=== PATIENT | female | born 1930 | race Caucasian/White ===

== ENCOUNTER → 2017-01-05 | Outpatient (CLI) | payer MEDICARE ==
--- NOTE | 2017-01-05 08:41 | RAD ---
DATE: 01/05/2017 EXAM: DIGITAL SCREEN BILAT W/CAD HISTORY: Screening study. COMPARISON: 11/12/2015 This study was interpreted with the benefit of Computerized Aided Detection (CAD). The breast parenchyma shows scattered fibroglandular densities. Breast parenchyma level B. FINDINGS: Digital MLO and CC mammograms of both breasts were obtained. Comparison study is dated 11/12/2015. The breast parenchyma is composed of scattered fibroglandular densities which can obscure a lesion on mammography. Scattered vascular calcifications are seen within both breasts. No spiculated mass is seen. No malignant appearing calcification or area of architectural distortion is noted. Since the previous examination there has been no significant interval change. IMPRESSION: BI-RADS Category 1, negative. There is no mammographic evidence of malignancy. Routine yearly screening mammography is recommended for follow-up. BI-RADS CATEGORY: 1 NEGATIVE RECOMMENDED FOLLOW-UP: 12M 12 MONTH FOLLOW-UP PQRS compliance statement: Patient information was entered into a reminder system with a target due date 01/05/2018 for the next mammogram. Mammography is a sensitive method for finding small breast cancers, but it does not detect them all and is not a substitute for careful clinical examination. A negative mammogram does not negate a clinically suspicious finding and should not result in delay in biopsying a clinically suspicious abnormality. "Our facility is accredited by the [employer] Mammography [employer]."
== END | disposition home or self-care (01) ==
LOC: MAMMO 07:40
PROVIDERS: ATTEND Family Medicine
DX: Z12.31 Encounter for screening mammogram for malignant neoplasm of breast (principal)
CPT/HCPCS: G0202; 77067

== ENCOUNTER → 2018-01-09 | Outpatient (CLI) | payer MEDICARE ==
--- NOTE | 2018-01-09 12:29 | RAD ---
DATE: 01/09/2018 EXAM: MAMMO MIKY SCREENING BILATERAL HISTORY: Routine screening COMPARISON: 01/05/2017 This study was interpreted with the benefit of Computerized Aided Detection (CAD). Breast Density: SCATTERED The breast parenchyma shows scattered fibroglandular densities. Breast parenchyma level B. FINDINGS: 2-D and 3-D tomosynthesis imaging was performed in CC and MLO projections. The cc view of the right breast demonstrates a tiny posterior opacity near the midline which was not evident on previous studies. This is best seen on CC miky image #32. A definite correlate is not seen in the oblique projection. No other new or enlarging breast densities are seen. Benign type calcifications are present. No suspicious microcalcifications are evident. IMPRESSION: Possible developing right breast density. Spot compression cc and straight medial lateral views are suggested for further evaluation. If a suspicious density persists, right breast ultrasound within the indicated. BI-RADS CATEGORY: 0 INCOMPLETE: NEEDS ADDITIONAL IMAGING EVALUATION AND/OR PRIOR MAMMOGRAMS FOR COMPARISON. RECOMMENDED FOLLOW-UP: ADD ADDITIONAL IMAGING PQRS compliance statement: Patient information was entered into a reminder system with a target due date for the next mammogram. Mammography is a sensitive method for finding small breast cancers, but it does not detect them all and is not a substitute for careful clinical examination. A negative mammogram does not negate a clinically suspicious finding and should not result in delay in biopsying a clinically suspicious abnormality. "Our facility is accredited by the [employer] Mammography Program."
== END | disposition home or self-care (01) ==
LOC: MAMMO 16:17
PROVIDERS: ATTEND Family Medicine
DX: Z12.31 Encounter for screening mammogram for malignant neoplasm of breast (principal)
CPT/HCPCS: 77063; 77067

== ENCOUNTER → 2018-01-18 | Outpatient (CLI) | payer MEDICARE ==
--- NOTE | 2018-01-18 13:59 | RAD ---
DATE: 01/18/2018 EXAM: DIGITAL DIAGNOSTIC RT HISTORY: Suspicious screening study COMPARISON: 01/09/2018, 01/05/2017, 10/13/2015 This study was interpreted with the benefit of Computerized Aided Detection (CAD). Breast Density: SCATTERED The breast parenchyma shows scattered fibroglandular densities. Breast parenchyma level B. FINDINGS: A spot compression cc view of the central aspect of the right breast was obtained. The small density seen on the screening study in this region is no longer evident. There are now normal appearing fibroglandular shadows similar to those seen on previous studies. The appearance on the screening exam was apparently a summation shadow. No abnormality is seen on the current straight mediolateral view. IMPRESSION: There is no mammographic evidence of malignancy in the right breast. Routine yearly follow-up is suggested. BI-RADS CATEGORY: 2 BENIGN FINDING(S) RECOMMENDED FOLLOW-UP: 12M 12 MONTH FOLLOW-UP PQRS compliance statement: Patient information was entered into a reminder system with a target due date for the next mammogram. Mammography is a sensitive method for finding small breast cancers, but it does not detect them all and is not a substitute for careful clinical examination. A negative mammogram does not negate a clinically suspicious finding and should not result in delay in biopsying a clinically suspicious abnormality. "Our facility is accredited by the [employer] Mammography Program."
== END | disposition home or self-care (01) ==
LOC: MAMMO 12:53
PROVIDERS: ATTEND Family Medicine
DX: R92.8 Other abnormal and inconclusive findings on diagnostic imaging of breast (principal)
CPT/HCPCS: 77065

== ENCOUNTER → 2018-02-18 | Outpatient (CLI) | payer MEDICARE ==
--- NOTE | 2018-02-18 12:55 | KCIC ---
EXAM: Dual energy x-ray absorptiometry (DEXA). HISTORY: Postmenopausal female presents for osteoporosis screening. COMPARISON: 04/27/2015. TECHNIQUE: Dual energy x-ray absorptiometry of the lumbar spine and left was performed. Calculation of bone mineral density based on standard deviations above or below the expected young adult normal value (T-score) was completed. FINDINGS: The average bone mineral density in the 1st through 4th lumbar vertebrae is 0.865 g/cmxcm, corresponding with a T-score of -1.7. There has been a 17.1% increase in density of the lumbar spine compared to the prior study. The average total bone mineral density in the left hip is 0.937 g/cmxcm, corresponding with a T-score of -0.0. There has been a 3.3% decrease in density of the left hip compared to the prior study. IMPRESSION: 1. Osteopenia measured at the lumbar spine. 2. Normal bone mineral density measured at the left hip. Note: Definitions established by the World Health Organization: 1. Normal: T-score is -1.0 or above. 2. Osteopenia: T-score is between -1.0 and -2.5 . 3. Osteoporosis: T-score is -2.5 or below. Electronically signed by: Paola Lindsey MD (02/18/2018 12:52 PM) [place] [id number]
== END | disposition home or self-care (01) ==
LOC: KCIC DEXA 09:27
PROVIDERS: ATTEND Family Medicine
DX: Z13.820 Encounter for screening for osteoporosis (principal); M85.88 Other specified disorders of bone density and structure, other site
CPT/HCPCS: 77080

== ENCOUNTER → 2018-10-30 | Outpatient (CLI) | payer MEDICARE ==
--- NOTE | 2018-10-30 16:38 | KCIC ---
Examination: Ultrasound abdomen complete HISTORY: History of bloating, cholecystectomy COMPARISON: None available. FINDINGS: The aorta, pancreas, IVC are not well-visualized due to bowel gas. The spleen is not well-visualized due to bowel gas. The visualized spleen measures 8 cm. The liver measures 16 cm in length. The common bile duct measures 4.2 mm in transverse dimension. Cholecystectomy changes identified. The right kidney measures 9.8 cm in length. Left kidney 10.6 cm in length. IMPRESSION: Cholecystectomy changes. Otherwise unremarkable exam. Electronically signed by: Prashanth Sun MD (10/30/2018 4:35 PM) [id number]
== END | disposition home or self-care (01) ==
LOC: KCIC US 10:51
PROVIDERS: ATTEND Internal Medicine Gastroenterology
DX: R14.0 Abdominal distension (gaseous) (principal); Z90.49 Acquired absence of other specified parts of digestive tract
CPT/HCPCS: 76700

== ENCOUNTER → 2019-01-20 | Outpatient (CLI) | payer MEDICARE ==
--- NOTE | 2019-01-22 10:49 | RAD ---
DATE: 01/20/2019 8:19 AM EXAM: MAMMO MIKY SCREENING BILATERAL HISTORY: routine screening evaluation. COMPARISON: Prior mammographic imaging 01/09/2018, 01/18/2018, 01/05/2017 Bilateral CC and MLO views of the breasts were performed. Bilateral breast tomosynthesis was performed in CC and MLO projections. This study was interpreted with the benefit of Computerized Aided Detection (CAD). FINDINGS: Breast Density: SCATTERED The breast parenchyma shows scattered fibroglandular densities. Breast parenchyma level B Benign calcifications are present. The parenchymal pattern appears stable. No suspicious masses, microcalcifications or architectural distortion is present to suggest malignancy in either breast. The visualized axillae are unremarkable. IMPRESSION: No mammographic evidence of malignancy. BI-RADS CATEGORY: 2 BENIGN FINDING(S) RECOMMENDED FOLLOW-UP: 12M 12 MONTH FOLLOW-UP Annual screening mammography is recommended, unless clinically indicated sooner based on symptoms or change in physical exam. PQRS compliance statement: Patient information was entered into a reminder system with a target due date for the next mammogram. Mammography is a sensitive method for finding small breast cancers, but it does not detect them all and is not a substitute for careful clinical examination. A negative mammogram does not negate a clinically suspicious finding and should not result in delay in biopsying a clinically suspicious abnormality. "Our facility is accredited by the [employer] Mammography Program."
== END | disposition home or self-care (01) ==
LOC: MAMMO 08:08
PROVIDERS: ATTEND Family Medicine
DX: Z12.31 Encounter for screening mammogram for malignant neoplasm of breast (principal); N64.89 Other specified disorders of breast
CPT/HCPCS: 77063; 77067

== ENCOUNTER → 2019-07-14 | Outpatient (CLI) | payer MEDICARE ==
--- NOTE | 2019-07-14 16:44 | RAD ---
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 Spectral waveforms and color Doppler of the bilateral internal carotid arteries are grossly unremarka ble. Overall 0 to less than 50% stenosis based on velocity criteria Bilateral vertebral velocities are antegrade. Normal ICA to CCA ratios bilaterally Critical Notification Critical Value: No <Conclusion> 1. No significant carotid occlusive disease bilaterally Signed by : Jessica Fleming, Electronically Approved : 07/14/2019 16:43:50
--- NOTE | 2019-07-14 16:48 | RAD ---
MR#: [id number] Date of Study: 07/14/2019 Ordering Physician: JESSICA FLEMING, Referring Physician: JESSICA FLEMING, Tech: DAVE Plata, RDMS, RTR APPROVED REPORT Patient Location: OUT-PATIENT Indications PAD VELOCITY AND DOPPLER WAVEFORM ANALYSIS RIGHT cm/secWaveformSeverity LEFT cm/secWaveform Severity pCFA 99.8BiphasicpCFA 96.2Biphasic Prof Fem Art. 74.5Prof Fem Art. 51.5 Fem Art Prox. 100.5BiphasicFem Art Prox. 75.8Biphasic Fem Art Mid. 179.3BiphasicFem Art Mid. 99.1Biphasic Fem Art Dist. 68.0BiphasicFem Art Dist. 71.6Biphasic Pop Art(Fossa) 101.9BiphasicPop Art([place]) 74.0Biphasic SPECIAL W[employer] OPERATOR Dist. 44.9BiphasicPTA Dist. 42.8Biphasic Per Art Dist.58.8BiphasicPer Art Dist.55.8Biphasic CRISTELA Dist. 65.2BiphasicATA Dist. 29.8Biphasic DPA 20BiphasicDPA 37Biphasic Findings Grayscale images of the bilateral lower extremity arterial vessels reveal moderate diffuse disease. N o significant obstructive disease is noted. Critical Notification Critical Value: No <Conclusion> 1. No significant bilateral lower extremity arterial disease with three-vessel runoff. Signed by : Jessica Fleming, Electronically Approved : 07/14/2019 16:47:43
== END ==
LOC: US 14:10
PROVIDERS: ATTEND Internal Medicine Cardiovascular Disease
DX: I65.23 Occlusion and stenosis of bilateral carotid arteries (principal); I77.3 Arterial fibromuscular dysplasia; I73.9 Peripheral vascular disease, unspecified
CPT/HCPCS: 93880; 93925

== ENCOUNTER → 2020-01-22 | Outpatient (CLI) | payer MEDICARE ==
--- NOTE | 2020-01-22 17:19 | RAD ---
DATE: 01/22/2020 9:53 AM EXAM: MAMMO MIKY SCREENING BILATERAL HISTORY: Screening COMPARISON: 01/09/2018, 01/20/2019 Bilateral CC and MLO views of the breasts were performed. Bilateral breast tomosynthesis was performed in CC and MLO projections. This study was interpreted with the benefit of Computerized Aided Detection (CAD). FINDINGS: Breast Density: SCATTERED The breast parenchyma shows scattered fibroglandular densities. Breast parenchyma level B No suspicious masses, microcalcifications or architectural distortion is present to suggest malignancy in either breast. The visualized axillae are unremarkable. IMPRESSION: No mammographic evidence of malignancy. BI-RADS CATEGORY: 1 NEGATIVE RECOMMENDED FOLLOW-UP: 12M 12 MONTH FOLLOW-UP Annual screening mammography is recommended, unless clinically indicated sooner based on symptoms or change in physical exam. PQRS compliance statement: Patient information was entered into a reminder system with a target due date for the next mammogram. Mammography is a sensitive method for finding small breast cancers, but it does not detect them all and is not a substitute for careful clinical examination. A negative mammogram does not negate a clinically suspicious finding and should not result in delay in biopsying a clinically suspicious abnormality. "Our facility is accredited by the [employer] Mammography Program."
== END | disposition home or self-care (01) ==
LOC: MAMMO 09:35
PROVIDERS: ATTEND Internal Medicine
DX: Z12.31 Encounter for screening mammogram for malignant neoplasm of breast (principal)
CPT/HCPCS: 77063; 77067

== ENCOUNTER → 2021-01-17 | Outpatient (CLI) | payer MEDICARE ==
--- NOTE | 2021-01-17 11:30 | RAD ---
EXAM: Bilateral digital screening mammogram with tomosynthesis. HISTORY: 89-year-old female presents for screening mammography. TECHNIQUE: Full-field digital craniocaudal and mediolateral oblique 2D and 3D tomosynthesis images of both breasts are obtained for evaluation. Computer aided detection was applied. COMPARISON: 01/20/2019, 01/09/2018, 01/05/2017 BREAST PARENCHYMAL DENSITY: Level B - Scattered fibroglandular densities. FINDINGS: There is no new suspicious mass, microcalcification or region of architectural distortion. There is stable asymmetry within the posterior medial right breast compared to multiple studies. Ther e are a few benign calcifications. IMPRESSION: BI-RADS Category 2: Benign finding(s). RECOMMENDATION: Annual mammography can be continued in this 89-year-old patient if deemed clinically indicated. If your mammogram demonstrates that you have dense breast tissue, which could hide abnormalities, and if you have other risk factors for breast cancer that have been identified, you might benefit from s upplemental screening tests that may be suggested by your ordering physician. Dense breast tissue, i n and of itself, is a relatively common condition. This information is not provided to cause undue c oncern, but rather to raise your awareness and to promote discussion with your physician regarding th e presence of other risk factors, in addition to dense breast tissue. A report of your mammography re sults will be sent to you and your physician. You should contact your physician if you have any ques tions or concerns regarding this report. Mammography is a sensitive method for finding small breast cancers, but it does not detect them all a nd is not a substitute for careful clinical examination. A negative mammogram does not negate a clin ically suspicious finding and should not result in delay in biopsying a clinically suspicious abnorma lity. PQRS compliance statement - Patient information was entered into a reminder system with a target due date for the next mammogram. "Our facility is accredited by the [employer] Mammography Program." Electronically signed by: Paola Lindsey MD (01/17/2021 11:28 AM) [id number]
== END ==
LOC: MAMMO 10:47
PROVIDERS: ATTEND Family Medicine
DX: Z12.31 Encounter for screening mammogram for malignant neoplasm of breast (principal); R92.1 Mammographic calcification found on diagnostic imaging of breast
CPT/HCPCS: 77063; 77067